=== PATIENT | male | born 1990 | race African-American/Black ===

== ENCOUNTER 2021-08-18 07:40 | Emergency (ER) | payer BC ==
[~2021-08-18] VITALS: Ht 198.1 cm; Wt 86.0 kg
[2021-08-18 07:46] VITALS: BP 133/79
== END 2021-08-18 08:24 | disposition home or self-care (01) ==
LOC: ER 07:40
DX: Z48.02 Encounter for removal of sutures (principal); R03.0 Elevated blood-pressure reading, without diagnosis of hypertension
CPT/HCPCS: 99281